=== PATIENT | female | born 1955 | race Caucasian/White ===

== ENCOUNTER 2018-03-27 10:09 | Outpatient (CLI) | payer MEDICARE, MEDICAID ==
--- NOTE | 2018-03-27 11:18 | RAD ---
CHEST TWO VIEWS: History: Foreign body ingestion. FINDINGS: Cardiac silhouette and pulmonary vasculature are unremarkable. Mediastinum is midline. No confluent a irspace consolidation, pneumothorax, or pleural fluid. No metallic foreign bodies overlie the esophag us. IMPRESSION: No significant abnormalities are demonstrated. POS: [facility]
--- NOTE | 2018-03-27 11:54 | RAD ---
ONE VIEW ABDOMEN: HISTORY: Foreign body in the digestive tract. COMPARISON: None. FINDINGS: Nonspecific bowel gas pattern. There is scattered fecal material in a nondistended, nondilated colon . No definite radiopaque foreign body in the visualized alimentary canal. Note, the stomach is excl uded from this exam. No definite pneumoperitoneum. IMPRESSION: No definite radiopaque foreign body. Additional imaging as warranted. POS: [facility]
== END 2018-03-27 10:10 | disposition home or self-care (01) ==
LOC: BICRAD 10:09
PROVIDERS: ATTEND Family Medicine
DX: T18.9XXD Foreign body of alimentary tract, part unspecified, subsequent encounter (principal)
CPT/HCPCS: 71046; 74018

== ENCOUNTER → 2019-06-14 | Day surgery (SDC) | payer MEDICARE, MEDICAID ==
[2019-06-13 12:34] VITALS: BMI 21.4
[~2019-06-14] MED LIST: HYDROcodone/Acetaminophen 5/325 mg Tablet ONE; Lidocaine 1% PF 5 ML VIAL ONE; Ondansetron PF 4 MG/2 ML Vial ONE; PROPOFOL 200 MG/20 ML VIAL ONE
--- NOTE | 2019-06-14 13:24 | MRI ---
MRI CERVICAL SPINE WITHOUT CONTRAST: INDICATIONS: Neck pain. FINDINGS: The cervical vertebrae maintain height. There are mild degenerative changes at C5-C6 with loss of dis k space and anterior osteophytes. Slight posterior listhesis at C5-C6 measures 2 to 3 mm. Disk spaces are otherwise preserved. No significant disk bulge or spondylosis seen at the C2-C3, C3-C4 or C4-C5 levels. At C5-C6 slight posterior listhesis, as noted above, with disk bulge and spondylosis flattening the t hecal sac and effacing the anterior subarachnoid space. No significant cord impingement. No foraminal stenosis. At C6-C7, minimal disk bulge. This flattens the thecal sac, however the anterior subarachnoid space i s preserved. The foramina are patent. C7-T1: No significant abnormality. IMPRESSION: Degenerative disk changes at C5-C6, as described above. POS: [facility]
== END ==
LOC: SDC/OP 10:42
PROVIDERS: ATTEND Family Medicine
DX: M47.812 Spondylosis without myelopathy or radiculopathy, cervical region (principal); M50.822 Other cervical disc disorders at C5-C6 level; M25.78 Osteophyte, vertebrae; M19.90 Unspecified osteoarthritis, unspecified site; M85.80 Other specified disorders of bone density and structure, unspecified site; F32.9 Major depressive disorder, single episode, unspecified; G40.909 Epilepsy, unspecified, not intractable, without status epilepticus; Z79.51 Long term (current) use of inhaled steroids; Z79.891 Long term (current) use of opiate analgesic; Z79.899 Other long term (current) drug therapy; Z88.8 Allergy status to other drugs, medicaments and biological substances; Z91.048 Other nonmedicinal substance allergy status
CPT/HCPCS: 72141; J2001; J2405; J2704